=== PATIENT | male | born 1950 | race Caucasian/White ===

== ENCOUNTER 2016-10-12 22:39 | Inpatient (IN) | payer OTHER, MEDICARE ==
[2016-10-12] MEDS ORDERED: SODIUM CHLORIDE 0.9% 1,000 ML IV STA (23:03)
[2016-10-12] MEDS ORDERED: ONDANSETRON 4 MG/2 ML VIAL IVP STA (23:03)
[2016-10-12] MEDS ORDERED: PANTOPRAZOLE 40 MG/10 ML VIAL IVP STA (23:03)
[2016-10-12] MEDS ORDERED: SODIUM CHLORIDE 0.9% 500 ML IV STA (23:03)
[2016-10-12] MEDS ORDERED: LORazepam 1 MG TAB PO STA (23:05)
[2016-10-12 23:43] LABS: Basophils # (A) 0.1 k/uL (0-0.2); Basophils % (A) 1 %; CH 30.4; CHCM 33.3; Eosinophils # (A) 0.4 k/uL (0-0.7); Eosinophils % (A) 2 %; HDW 2.75; Luc # (Auto) 0.18; Luc % (Auto) 1; Lymphocytes # (A) 2.3 k/uL (1.0-4.8); Lymphocytes % (A) 11 %; MCH 29.1 pg (25.0-35.0); MCHC 31.8 g/dL (31.0-37.0); MCV 91.7 fL (80.0-100.0); Mean Platelet Volume 6.9; Monocytes # (A) 1.2 k/uL (0-1.0); Monocytes % (A) 6 %; Neutrophils # (A) 16.3 k/uL (1.3-7.7); Neutrophils % (A) 80 %; RBC 4.48 m/uL (4.30-5.90); RDW 14.5 % (11.5-15.5); WBC 20.4 k/uL (3.8-10.6); WBC (Perox) 20.26
[2016-10-12 23:51] LABS: INR 1.1 (<1.2); Partial Thromboplastin Time 23.4 sec (22.0-30.0); Prothrombin Time 11.1 sec (9.0-12.0)
[2016-10-12 23:52] LABS: ALT 27 U/L (21-72); AST 16 U/L (17-59); Alkaline Phosphatase 120 U/L (38-126); Amylase <30 U/L (30-110); Anion Gap 12 mmol/L; Blood Urea Nitrogen 14 mg/dL (9-20); Calcium 9.4 mg/dL (8.4-10.2); Carbon Dioxide 20 mmol/L (22-30); Chloride 105 mmol/L (98-107); Glucose 98 mg/dL (74-99); Non-African American GFR(MDRD) >60 (>60 ml/min/1.73 sqM); Sodium 137 mmol/L (137-145); Total Bilirubin 0.7 mg/dL (0.2-1.3); Total Protein 6.6 g/dL (6.3-8.2)
[2016-10-13 00:04] LABS: Creatine Kinase 38 U/L (55-170)
[2016-10-13 00:17] LABS: Creatine Kinase MB 0.8 ng/mL (0.0-2.4); Troponin I <0.012 ng/mL (0.000-0.034)
[2016-10-13] MEDS ORDERED: RX INFO: IV CONTRAST WAS GIVEN 1 EACH MISC MISCELLANE PRN (00:26)
--- NOTE | 2016-10-13 01:15 | XR ---
CXR 1 View INDICATION: abdominal pain COMPARISON: none FINDINGS: Examination is limited by technique. The cardiomediastinal silhouette is prominent. Mild deviation of trachea to the right. There is hazy opacification of the left mid to lower lung field, nonspecific and may be related to airspace disease, however differential considerations include artifact related to overlying soft tissue structures. Prominence of bilateral rocío. There maybe some atelectasis at the lung bases. No definite evidence for pleural effusions. Osseous structures are grossly unremarkable for acute findings. There are overlying leads limiting evaluation. IMPRESSION: 1. There is hazy opacification of the left mid to lower lung field which may be related to airspace disease, however differential considerations include artifact related to overlying soft tissue structures. 2. Prominence of bilateral rocío, nonspecific. Further evaluation by cross- sectional imaging is recommended as clinically warranted.
[2016-10-13] MEDS ORDERED: cefTRIAXone 2,000 MG in SODIUM CHLORIDE 0.9% 100 ML IVPB STA (01:55)
[2016-10-13] MEDS ORDERED: AZITHROMYCIN 500 MG in SODIUM CHLORIDE 0.9% 250 ML IVPB STA (01:55)
--- NOTE | 2016-10-13 02:01 | CT ---
CT abdomen and pelvis with contrast INDICATION: abdominal pain TECHNIQUE: Multiple, contiguous axial cuts of the abdomen and pelvis are obtained from the lung bases to the ischial tuberosities following the administration of IV contrast. 100 cc omnipaque 300. Radiation Dose: DLP: 1539.70 mGy-cm This CT exam was performed using one or more of the following dose reduction techniques: automated exposure control, adjustment of the mA and/or kV according to patient size, and/or use of iterative reconstruction technique. COMPARISON: FINDINGS: Examination is limited by artifact through the images related to overlying arms. Scarring/atelectasis at the lung bases. The liver and spleen appear normal in size. Probable splenule at the splenic hilum. The gallbladder and pancreas is grossly unremarkable. The adrenal gland are unremarkable. No evidence for hydronephrosis. Mild bilateral perinephric stranding, nonspecific. Subtle hyperdensity in the right lateral aspect of the inferior bladder. Small hiatal hernia. The appendix is normal caliber with subtle periappendiceal haziness of the tip. There is thickening of the sigmoid colon and rectum with irregular hazy margins of the pericolonic/perirectal fat with adjacent lymph nodes with abnormally rounded configurations. There is prominence of the colon proximal to the thickened sigmoid and a component of functional obstructive process is difficult to exclude. Nonspecific 1.3 cm short axis soft tissue nodule at the medial aspect of the caudate lobe which may represent a lymph node. Additional nonspecific scattered retroperitoneal lymph nodes. There is possible fluid in the right inguinal canal or possible volume averaging on the right testicle in the inguinal canal. Please correlate with physical exam. Prominent lymph nodes along the bilateral iliac chains. Atherosclerotic calcifications of the abdominal aorta. Prominent mural plaque/calcifications of the infrarenal abdominal aorta. There are chronic appearing deformities of the bilateral femoral heads with severe degenerative changes of the bilateral hip joints. Degenerative changes of the lumbar spine. Osseous mineralization appears decreased. IMPRESSION: 1. There is thickening of the sigmoid colon and rectum with adjacent prominent lymph nodes with abnormal configurations. Additionally there are prominent retroperitoneal lymph nodes. Constellation of findings is concerning for malignancy with other less likely differential consideration including a colitis. Please correlate with colonoscopy results if available. Gastroenterology consultation is recommended. 2. There is prominence of the colon proximal to the thickened sigmoid and a component of functional/mechanical obstructive process is difficult to exclude. 3. The appendix is normal caliber with subtle periappendiceal haziness of the tip which may be related to adjacent colonic process, however tip appendicitis cannot be exclude. Please correlate with clinical findings. 4. Small hiatal hernia. 5. Chronic appearing deformities of the bilateral femoral heads with severe degenerative changes of the bilateral hip joints. 6. Subtle hyperdensity in the right lateral aspect of the inferior bladder, nonspecific and may be stones or contrast material. Continued attention on followup is recommended. Bladder ultrasound may be helpful for further evaluation. [employer] 10/13/16 02:07 Verify Receipt Verified receipt with [facility]AROLINA Sun, given to Dr. Boudreaux on 10/13 02:06 (-04:00)
--- NOTE | 2016-10-13 02:05 | ED ---
Abdominal Pain HPI - General Chief Complaint: Abdominal Pain Stated Complaint: vomiting Time Seen by Provider: 10/12/16 22:55 Source: patient, EMS Mode of arrival: EMS Limitations: no limitations - History of Present Illness Initial Comments: 66 years old male presents with coffee-ground emesis and nausea for the last 2 days he denies any abdominal pain lost T12 that was towards ago. He denies any headaches no chest pain no shortness of breath no abdominal pain and he has been having a dark 40 stools as well but he attributes that to RN pill he takes. He denies any sinus symptoms of TIA or CVA no frequency urgency dysuria no fever no chills - Related Data Home Medications Medication Instructions Recorded Confirmed ARIPiprazole [Abilify] 5 mg PO BID@0800,1700 10/12/16 10/12/16 Aspirin EC [Ecotrin Low Dose] 81 mg PO HS@199910/12/16 10/12/16 Cholecalciferol [Vitamin D3] 1,000 unit PO HS@199910/12/16 10/12/16 Dicyclomine [Bentyl] 10 mg PO QID@,,,10/12/16 10/12/16 Divalproex Sodium [Depakote ER] 250 mg PO BID@0800,199910/12/16 10/12/16 Donepezil [Aricept] 5 mg PO HS@199910/12/16 10/12/16 FLUoxetine HCL [PROzac] 20 mg PO HS@199910/12/16 10/12/16 Ferrous Sulfate [Feosol] 325 mg PO TID@0800,1399,199910/12/16 10/12/16 Lactobacillus Acidophilus 1 tab PO BID@0800,1700 10/12/16 10/12/16 [Acidophilus] Zolpidem [Ambien] 5 mg PO HS@199910/12/16 10/12/16 buPROPion HCL [Wellbutrin SR] 100 mg PO BID@0800,1400 10/12/16 10/12/16 sulfaSALAzine [Azulfidine] 500 mg PO QID@,,17,20 10/12/16 10/12/16 Allergies Allergy/AdvReac Type Severity Reaction Status Date / Time No Known Allergies Allergy Unverified 10/12/16 22:59 Review of Systems ROS Statement: Those systems with pertinent positive or pertinent negative responses have been documented in the HPI. ROS Other: All systems not noted in ROS Statement are negative. Past Medical History Additional Past Medical History / Comment(s): cellulitis History of Any Multi-Drug Resistant Organisms: None Reported Past Surgical History: Adenoidectomy, Tonsillectomy Past Psychological History: Anxiety, Depression Smoking Status: Former smoker Past Alcohol Use History: None Reported Past Drug Use History: Marijuana General Exam - General Exam Comments Initial Comments: General: The patient is awake and alert, quite anxious Skin: Skin is warm and dry and no rashes or lesions are noted. Both lower extremity has some iron deposits, and consistent with a venous stasis and chronic changes in the leg Eye: Pupils are equal, round and reactive to light, extra-ocular movements are intact; there is normal conjunctiva bilaterally. Ears, nose, mouth and throat: There are moist mucous membranes and no oral lesions. Neck: The neck is supple, there is no tenderness Cardiovascular: There is a regular rate and rhythm. No murmur, rub or gallop is appreciated. Respiratory: To auscultation bilateral, which breath sounds bilateral Gastrointestinal: Soft, non-distended, non-tender abdomen without masses or organomegaly noted. There is no rebound or guarding present. Bowel sounds are unremarkable. Back: There is no tenderness to palpation in the midline. There is no obvious deformity. Musculoskeletal: Normal ROM, no tenderness, There is no pedal edema. There is no calf tenderness or swelling. No cords were appreciated. Neurological: CN II-XII intact, Cranial nerves III through XII are intact. There are no obvious motor or sensory deficits. Coordination appears grossly intact. Speech is normal. Psychiatric: Cooperative, seems anxious and depressed. Limitations: no limitations Course Vital Signs 10/12/16 10/12/16 10/12/16 22:42 22:51 23:13 Temperature 98.5 F Pulse Rate 93 92 Respiratory 24 34 H 18 Rate Blood Pressure 154/71 156/115 O2 Sat by Pulse 96 96 Oximetry 10/12/16 10/13/16 10/13/16 23:43 00:58 01:49 Temperature 98.4 F Pulse Rate 86 94 98 Respiratory 20 20 20 Rate Blood Pressure 167/106 138/62 134/62 O2 Sat by Pulse 96 97 96 Oximetry Medical Decision Making - Lab Data Result diagrams: 10/12/16 23:30 10/12/16 23:30 Lab Results 10/12/16 10/12/16 10/12/16 Range/Units 23:30 23:30 23:30 WBC 20.4 H (3.8-10.6) k/uL RBC 4.48 (4.30-5.90) m/uL Hgb 13.0 (13.0-17.5) gm/dL Hct 41.0 (39.0-53.0) % MCV 91.7 (80.0-100.0) fL MCH 29.1 (25.0-35.0) pg MCHC 31.8 (31.0-37.0) g/dL RDW 14.5 (11.5-15.5) % Plt Count 395 (150-450) k/uL Neutrophils % 80 % Lymphocytes % 11 % Monocytes % 6 % Eosinophils % 2 % Basophils % 1 % Neutrophils # 16.3 H (1.3-7.7) k/uL Lymphocytes # 2.3 (1.0-4.8) k/uL Monocytes # 1.2 H (0-1.0) k/uL Eosinophils # 0.4 (0-0.7) k/uL Basophils # 0.1 (0-0.2) k/uL PT (9.0-12.0) sec INR (<1.2) APTT (22.0-30.0) sec Sodium 137 (137-145) mmol/L Potassium 4.0 (3.5-5.1) mmol/L Chloride 105 (98-107) mmol/L Carbon Dioxide 20 L (22-30) mmol/L Anion Gap 12 mmol/L BUN 14 (9-20) mg/dL Creatinine 0.70 (0.66-1.25) mg/dL Est GFR (MDRD) Af Amer >60 (>60 ml/min/1.73 sqM) Est GFR (MDRD) Non-Af >60 (>60 ml/min/1.73 sqM) Glucose 98 (74-99) mg/dL Plasma Lactic Acid Abdirahman (0.7-2.0) mmol/L Calcium 9.4 (8.4-10.2) mg/dL Total Bilirubin 0.7 (0.2-1.3) mg/dL AST 16 L (17-59) U/L ALT 27 (21-72) U/L Alkaline Phosphatase 120 (38-126) U/L Total Creatine Kinase 38 L (55-170) U/L CK-MB (CK-2) 0.8 (0.0-2.4) ng/mL CK-MB (CK-2) Rel Index 2.1 Troponin I <0.012 (0.000-0.034) ng/mL Total Protein 6.6 (6.3-8.2) g/dL Albumin 3.4 L (3.5-5.0) g/dL Amylase <30 L (30-110) U/L Lipase 59 (23-300) U/L Blood Type Blood Type Confirm Blood Type Recheck Antibody Screen Spec Expiration Date 10/12/16 10/12/16 10/12/16 Range/Units 23:30 23:30 23:30 WBC (3.8-10.6) k/uL RBC (4.30-5.90) m/uL Hgb (13.0-17.5) gm/dL Hct (39.0-53.0) % MCV (80.0-100.0) fL MCH (25.0-35.0) pg MCHC (31.0-37.0) g/dL RDW (11.5-15.5) % Plt Count (150-450) k/uL Neutrophils % % Lymphocytes % % Monocytes % % Eosinophils % % Basophils % % Neutrophils # (1.3-7.7) k/uL Lymphocytes # (1.0-4.8) k/uL Monocytes # (0-1.0) k/uL Eosinophils # (0-0.7) k/uL Basophils # (0-0.2) k/uL PT 11.1 (9.0-12.0) sec INR 1.1 (<1.2) APTT 23.4 (22.0-30.0) sec Sodium (137-145) mmol/L Potassium (3.5-5.1) mmol/L Chloride (98-107) mmol/L Carbon Dioxide (22-30) mmol/L Anion Gap mmol/L BUN (9-20) mg/dL Creatinine (0.66-1.25) mg/dL Est GFR (MDRD) Af Amer (>60 ml/min/1.73 sqM) Est GFR (MDRD) Non-Af (>60 ml/min/1.73 sqM) Glucose (74-99) mg/dL Plasma Lactic Acid Abdirahman 1.4 (0.7-2.0) mmol/L Calcium (8.4-10.2) mg/dL Total Bilirubin (0.2-1.3) mg/dL AST (17-59) U/L ALT (21-72) U/L Alkaline Phosphatase (38-126) U/L Total Creatine Kinase (55-170) U/L CK-MB (CK-2) (0.0-2.4) ng/mL CK-MB (CK-2) Rel Index Troponin I (0.000-0.034) ng/mL Total Protein (6.3-8.2) g/dL Albumin (3.5-5.0) g/dL Amylase (30-110) U/L Lipase (23-300) U/L Blood Type B Positive Blood Type Confirm Blood Type Recheck CABO Indicated Antibody Screen NEGATIVE Spec Expiration Date 10/15/2016 - 232910/13/16 Range/Units 00:57 WBC (3.8-10.6) k/uL RBC (4.30-5.90) m/uL Hgb (13.0-17.5) gm/dL Hct (39.0-53.0) % MCV (80.0-100.0) fL MCH (25.0-35.0) pg MCHC (31.0-37.0) g/dL RDW (11.5-15.5) % Plt Count (150-450) k/uL Neutrophils % % Lymphocytes % % Monocytes % % Eosinophils % % Basophils % % Neutrophils # (1.3-7.7) k/uL Lymphocytes # (1.0-4.8) k/uL Monocytes # (0-1.0) k/uL Eosinophils # (0-0.7) k/uL Basophils # (0-0.2) k/uL PT (9.0-12.0) sec INR (<1.2) APTT (22.0-30.0) sec Sodium (137-145) mmol/L Potassium (3.5-5.1) mmol/L Chloride (98-107) mmol/L Carbon Dioxide (22-30) mmol/L Anion Gap mmol/L BUN (9-20) mg/dL Creatinine (0.66-1.25) mg/dL Est GFR (MDRD) Af Amer (>60 ml/min/1.73 sqM) Est GFR (MDRD) Non-Af (>60 ml/min/1.73 sqM) Glucose (74-99) mg/dL Plasma Lactic Acid Abdirahman (0.7-2.0) mmol/L Calcium (8.4-10.2) mg/dL Total Bilirubin (0.2-1.3) mg/dL AST (17-59) U/L ALT (21-72) U/L Alkaline Phosphatase (38-126) U/L Total Creatine Kinase (55-170) U/L CK-MB (CK-2) (0.0-2.4) ng/mL CK-MB (CK-2) Rel Index Troponin I (0.000-0.034) ng/mL Total Protein (6.3-8.2) g/dL Albumin (3.5-5.0) g/dL Amylase (30-110) U/L Lipase (23-300) U/L Blood Type Blood Type Confirm B Positive Blood Type Recheck Antibody Screen Spec Expiration Date Disposition Clinical Impression: Coffee ground emesis, GI bleed, Pneumonia Disposition: ADMITTED IP TO THIS [facility] Condition: Good Referrals: Nonstaff,Physician [Primary Care Provider] - 1-2 days
[2016-10-13] MEDS ORDERED: SODIUM CHLORIDE 0.9% 1,000 ML IV ONE (02:06)
[2016-10-13] MEDS ORDERED: metroNIDAZOLE-NS PMX 500 MG in SALINE 1 100ML.BAG IVPB STA (02:13)
[2016-10-13 03:04] VITALS: BMI 27.2
[2016-10-13 03:11] LABS: Amorphous Sediment,Urine Few /hpf; Appearance,Urine Cloudy (Clear); Bacteria,Urine Rare /hpf; Bilirubin,Urine 1+ (Negative); Glucose,Urine (UA) Negative (Negative); Ketones,Urine 2+ (Negative); Leukocyte Esterase,Urine Negative (Negative); Mucus,Urine Occasional /hpf; Nitrite,Urine Negative (Negative); PH, Urine 7.5 (5.0-8.0); Particle Count 9031; Protein,Urine 1+ (Negative); RBC,Urine 2 /hpf (0-5); Squamous Epithelial Cell,Urine 1 /hpf (0-4); UA Billing (MACRO vs. MICRO) MICRO; Urobilinogen,Urine <2.0 mg/dL (<2.0); WBC,Urine 10 /hpf (0-5)
[2016-10-13 03:22] LABS: Specific Gravity,Urine >1.050 (1.001-1.035)
--- NOTE | 2016-10-13 04:37 | P.HPIM ---
History of Present Illness H&P Date: 10/13/16 Chief Complaint: Intractable nausea and vomiting This is 66-year-old male who has history of debilitating rheumatoid arthritis and unknown mental health condition who came to emergency department with complaint of severe nausea and vomiting going on for the last 34 days. Prior to start of his symptoms patient was in his usual state of health. 3-4 days ago he started experiencing nausea and he vomited multiple times no bloody known bile was 4. He was unable to keep anything by mouth. He tried to drink some cold and to up immediately after that. He did not experience any abdominal pain. He has suffered with some heartburns but no difficulties in swallowing or painful swallowing of the foot. Denies any changes in all movement habits. Last bowel movement morning patient describes it as being black. Also note he is on iron pills. Patient denies any weight loss or changes in the appetite the last few months. Patient didn't try anything for his nausea and did not find any alleviating factors. Since his symptoms were getting progressively worse stool was black and decided to come to emergency Department. In the MRSA Department his initial blood work revealed white blood cell count of 20 normal hemoglobin and platelet count. He had CT of the abdomen and pelvis that showed some thickening in the sigmoid colon and rectum with associated lymphadenopathy suspicious for malignancy and also some haziness around his appendix that cannot rule out appendicitis. Chest x-ray shows some haziness in the left lower lobe. Patient denies any shortness of breath or coughing. Currently during interview he states that he is nausea is significantly better. Ration lives with his currently. He is nonambulatory due to debilitating arthritis in his opinion and he is not able to walk. He cannot tell me if he has any doctor that he is following with. He cannot risk his medications he needs his is here. He is to reside in the in the nursing facility. He he had colonoscopy in 2001 seems for screening purposes and that time a small polyp was removed per patient. I do not have any documentation or any family members are available. Patient was admitted for further evaluation of his colonic thickening as well as nausea and vomiting. Review of Systems Constitutional: Denies anorexia, Denies fatigue, Denies fever, Denies lethargy, Denies malaise, Denies night sweats, Denies poor appetite Ears, nose, mouth and throat: Denies dysphagia, Denies headache, Denies odynophagia Cardiovascular: Denies chest pain, Denies dyspnea on exertion, Denies edema, Denies high blood pressure, Denies orthopnea, Denies shortness of breath Respiratory: Denies congestion, Denies cough, Denies cough with sputum, Denies dyspnea, Denies hemoptysis, Denies home oxygen Gastrointestinal: Reports as per HPI Genitourinary: Denies hematuria, Denies polyuria Musculoskeletal: Reports gait dysfunction, Reports limitation of motion, Reports low back pain, Reports morning stiffness, Reports muscle cramps, Reports myalgias Integumentary: Reports darkening of skin, Denies sores, Denies wounds Neurological: Reports balance difficulties Endocrine: Denies cold intolerance, Denies heat intolerance, Denies polydipsia, Denies polyuria Hematologic/Lymphatic: Denies easy bruising Past Medical History Past Medical History: Osteoarthritis (OA), Rheumatoid Arthritis (RA) Additional Past Medical History / Comment(s): cellulitis History of Any Multi-Drug Resistant Organisms: None Reported Past Surgical History: Adenoidectomy, Tonsillectomy Past Anesthesia/Blood Transfusion Reactions: No Reported Reaction Past Psychological History: Anxiety, Depression Smoking Status: Former smoker Past Alcohol Use History: None Reported Past Drug Use History: Marijuana - Past Family History Father Family Medical History: Cancer Medications and Allergies Home Medications Medication Instructions Recorded Confirmed Type ARIPiprazole [Abilify] 5 mg PO BID@0800,1700 10/12/16 10/12/16 History Aspirin EC [Ecotrin Low Dose] 81 mg PO HS@199910/12/16 10/12/16 History Cholecalciferol [Vitamin D3] 1,000 unit PO HS@199910/12/16 10/12/16 History Dicyclomine [Bentyl] 10 mg PO QID@08,,,10/12/16 10/12/16 History Divalproex Sodium [Depakote ER] 250 mg PO BID@0800,199910/12/16 10/12/16 History Donepezil [Aricept] 5 mg PO HS@199910/12/16 10/12/16 History FLUoxetine HCL [PROzac] 20 mg PO HS@199910/12/16 10/12/16 History Ferrous Sulfate [Feosol] 325 mg PO TID@0800,1400,199910/12/16 10/12/16 History Lactobacillus Acidophilus 1 tab PO BID@0800,1700 10/12/16 10/12/16 History [Acidophilus] Zolpidem [Ambien] 5 mg PO HS@2000 10/12/16 10/12/16 History buPROPion HCL [Wellbutrin SR] 100 mg PO BID@0800,1400 10/12/16 10/12/16 History sulfaSALAzine [Azulfidine] 500 mg PO QID@08,,,20 10/12/16 10/12/16 History Allergies Allergy/AdvReac Type Severity Reaction Status Date / Time No Known Allergies Allergy Unverified 10/12/16 22:59 Physical Exam Vitals: Vital Signs Temp Pulse Pulse Resp BP BP Pulse Ox 10/13/16 03:07 98.1 F 87 18 121/58 96 10/13/16 02:26 98.2 F 90 20 133/58 97 10/13/16 01:49 98.4 F 98 20 134/62 96 10/13/16 00:58 94 20 138/62 97 10/12/16 23:43 86 20 167/106 96 10/12/16 23:13 92 18 156/115 96 10/12/16 22:51 34 H 10/12/16 22:42 98.5 F 93 24 154/71 96 Intake and Output 10/12/16 10/12/16 10/13/16 14:59 22:59 06:59 Other: Weight 74.843 kg 79 kg Patient Weight 10/13/16 06:59 Weight 79 kg - Constitutional General appearance: cooperative, disheveled, no acute distress - EENT Eyes: anicteric sclerae, EOMI, PERRLA ENT: normal oropharynx, no pharyngeal erythema - Respiratory Respiratory: bilateral: CTA, diminished, rales, negative: rhonchi, wheezing - Cardiovascular Rhythm: regular Heart sounds: normal: S1, S2 - Gastrointestinal General gastrointestinal: decreased bowel sounds, no distended, no organomegaly , no rigid, soft, no tenderness - Integumentary Integumentary: rash - Neurologic Neurologic: CNII-XII intact - Musculoskeletal Musculoskeletal: generalized weakness - Psychiatric Psychiatric: A&O x's 3 Results CBC & Chem 7: 10/12/16 23:30 10/12/16 23:30 Labs: Abnormal Lab Results - Last 24 Hours (Table) 10/12/16 10/12/16 10/12/16 Range/Units 23:30 23:30 23:30 WBC 20.4 H (3.8-10.6) k/uL Neutrophils # 16.3 H (1.3-7.7) k/uL Monocytes # 1.2 H (0-1.0) k/uL Carbon Dioxide 20 L (22-30) mmol/L AST 16 L (17-59) U/L Total Creatine Kinase 38 L (55-170) U/L Albumin 3.4 L (3.5-5.0) g/dL Amylase <30 L (30-110) U/L Ur Specific Clayton (1.001-1.035) Urine Protein (Negative) Urine Ketones (Negative) Urine Bilirubin (Negative) Urine WBC (0-5) /hpf Amorphous Sediment (None) /hpf Urine Bacteria (None) /hpf Urine Mucus (None) /hpf Urine Yeast (Budding) (None) /hpf 10/13/16 Range/Units 02:06 WBC (3.8-10.6) k/uL Neutrophils # (1.3-7.7) k/uL Monocytes # (0-1.0) k/uL Carbon Dioxide (22-30) mmol/L AST (17-59) U/L Total Creatine Kinase (55-170) U/L Albumin (3.5-5.0) g/dL Amylase (30-110) U/L Ur Specific Clayton >1.050 H (1.001-1.035) Urine Protein 1+ H (Negative) Urine Ketones 2+ H (Negative) Urine Bilirubin 1+ H (Negative) Urine WBC 10 H (0-5) /hpf Amorphous Sediment Few H (None) /hpf Urine Bacteria Rare H (None) /hpf Urine Mucus Occasional H (None) /hpf Urine Yeast (Budding) Occasional H (None) /hpf Chest x-ray: report reviewed CT scan - abdomen: report reviewed Thrombosis Risk Factor Assmnt - DVT/VTE Prophylaxis DVT/VTE Prophylaxis: Pharmacologic Prophylaxis ordered - Choose All That Apply Any of the Below Risk Factors Present?: No Other Risk Factors: Yes Each Risk Factor Represents 2 Points: Age 61-74 years Thrombosis Risk Factor Assessment Total Risk Factor Score: 2 Thrombosis Risk Factor Assessment Level: Low Risk Assessment and Plan (1) Intractable nausea and vomiting Narrative/Plan: Nothing per mouth GI consult Antiemetics PPI Status: Acute (2) Mural thickening of sigmoid colon Narrative/Plan: Associated lymphadenopathy Could represent malignancy versus colitis infectious//ischemic GI consulted Monitor hemoglobin Continue antibiotics in view of significant leukocytosis and CT findings Status: Acute (3) Rheumatoid arthritis Narrative/Plan: Unclear history He is on sulfasalazine per list of home medication We'll need to contact the family to inquire more patient prior medical history Status: Acute (4) Debility Narrative/Plan: More history need to be obtained from family Status: Acute (5) Stasis dermatitis Narrative/Plan: Local care Status: Acute Time with Patient: Greater than 30
[2016-10-13] MEDS ORDERED: NALOXONE 0.4 MG/ML 1 ML VIAL IV PRN (04:39)
[2016-10-13] MEDS ORDERED: ONDANSETRON 4 MG/2 ML VIAL IVP PRN (04:39)
[2016-10-13] MEDS ORDERED: ACETAMINOPHEN TAB 325 MG TAB PO PRN (04:39)
[2016-10-13] MEDS ORDERED: LACTATED RINGERS 1,000 ML IV SCH (04:45)
[2016-10-13] MEDS: DEXTROSE 5%-0.45% NACL 1,000 ML IV SCH ×2 (05:23→18:04)
--- NOTE | 2016-10-13 07:18 | XR ---
EXAMINATION TYPE: XR KUB DATE OF EXAM: 10/13/2016 COMPARISON: NONE HISTORY: Abdominal pain and vomiting TECHNIQUE: Supine abdominal radiograph was obtained. FINDINGS: There is prominence of the redundant sigmoid colon measuring up to 5 cm with lack of haustr al markings distally. Multiple air-filled nondilated small bowel loops are clustered within the mid a bdomen. Moderate amount stool is seen throughout the colon. Destructive changes of the femoral acetabular joints. IMPRESSION: Findings suspicious for evolving early partial obstruction versus colonic ileus.
[2016-10-13] MEDS ORDERED: DICYCLOMINE 10 MG CAP PO SCH (08:00)
[2016-10-13] MEDS ORDERED: FERROUS SULFATE 325 MG TAB PO SCH (08:00)
[2016-10-13] MEDS ORDERED: sulfaSALAzine 500 MG TAB PO SCH (08:00)
[2016-10-13] MEDS ORDERED: LACTOBACILLUS ACIDOPH & BULGAR 1 EACH PACKET PO SCH (08:00)
[2016-10-13] MEDS: ARIPiprazole 5 MG TAB PO SCH ×2 (10:38→16:01)
[2016-10-13] MEDS: buPROPion SR 100 MG TABLET.ER PO SCH ×2 (10:38→13:09)
[2016-10-13] MEDS: PANTOPRAZOLE 40 MG/10 ML VIAL IV SCH (10:38)
[2016-10-13] MEDS: DIVALPROEX ER 250 MG TAB.ER.24H PO SCH ×2 (10:39→21:35)
[2016-10-13] MEDS: THIAMINE 100 MG TAB PO SCH (10:39)
--- NOTE | 2016-10-13 10:39 | P.CONS ---
History of Present Illness - Reason for Consult Consult date: 10/13/16 Abdominal pain Requesting physician: Cristiano Marin - History of Present Illness 66-year-old gentleman, , with a history of severe rheumatoid arthritis medical debility bedbound presents with nausea vomiting nonbloody emesis and abdominal pain 5 days. Patient denies hematemesis hematochezia melena however medical records review there was reports of coffee-ground emesis possible melena upon evaluation in the ER. Intermittent diarrhea no constipation. Pain mostly in the mid to lower abdomen. Nursing reports no episodes of hematemesis hematochezia melena. No NSAIDs or aspirin. No alcohol. White count 20.4. Hemoglobin 13. INR 1.1. Platelets 395. BUN 14. Creatinine 0.7. Hemoccult stool positive. CT abdomen and pelvis reported thickening of the sigmoid colon and rectum with adjacent prominent lymph nodes with abnormal configurations. Prominent retroperitoneal lymph nodes. Concerned for malignancy possible colitis. Appendix normal caliber with subtle periappendiceal haziness the tip may be related to adjacent colonic process however appendicitis cannot be excluded. Last colonoscopy to patient's memory was in 2001 small polyp removed. Review of Systems Constitutional: Denies fever, chills, sweats, weight gain, or loss. HEENT: Negative for migraines, blurred vision or loss, earaches, drainage, tinnitus, oral mucosal lesions, dysphagia, or odynophagia. Cardiac: Negative for chest pain, arrhythmias, or palpitation. Respiratory: Negative for shortness of breath, hemoptysis, cough, or sputum production. Gastrointestinal: See HPI for pertinent findings. Genitourinary: Negative for hematuria, urgency, frequency, polyuria, dysuria, or penile discharge. Musculoskeletal: Rheumatoid arthritis. Neurologic: Negative for stroke or TIA. Endocrine: Negative for thyroid problems. Skin: Negative for rash or itching. Psychiatric: History of depression and anxiety Past Medical History Past Medical History: Osteoarthritis (OA), Rheumatoid Arthritis (RA) Additional Past Medical History / Comment(s): cellulitis History of Any Multi-Drug Resistant Organisms: None Reported Past Surgical History: Adenoidectomy, Tonsillectomy Past Anesthesia/Blood Transfusion Reactions: No Reported Reaction Past Psychological History: Anxiety, Depression Smoking Status: Former smoker Past Alcohol Use History: None Reported Past Drug Use History: Marijuana - Past Family History Father Family Medical History: Cancer Medications and Allergies Home Medications Medication Instructions Recorded Confirmed Type ARIPiprazole [Abilify] 5 mg PO BID@0800,1700 10/12/16 10/12/16 History Aspirin EC [Ecotrin Low Dose] 81 mg PO HS@199910/12/16 10/12/16 History Cholecalciferol [Vitamin D3] 1,000 unit PO HS@199910/12/16 10/12/16 History Dicyclomine [Bentyl] 10 mg PO QID@,,,10/12/16 10/12/16 History Divalproex Sodium [Depakote ER] 250 mg PO BID@0800,199910/12/16 10/12/16 History Donepezil [Aricept] 5 mg PO HS@199910/12/16 10/12/16 History FLUoxetine HCL [PROzac] 20 mg PO HS@199910/12/16 10/12/16 History Ferrous Sulfate [Feosol] 325 mg PO TID@0800,1400,199910/12/16 10/12/16 History Lactobacillus Acidophilus 1 tab PO BID@0800,1700 10/12/16 10/12/16 History [Acidophilus] Zolpidem [Ambien] 5 mg PO HS@199910/12/16 10/12/16 History buPROPion HCL [Wellbutrin SR] 100 mg PO BID@0800,1400 10/12/16 10/12/16 History sulfaSALAzine [Azulfidine] 500 mg PO QID@,,,10/12/16 10/12/16 History Allergies Allergy/AdvReac Type Severity Reaction Status Date / Time No Known Allergies Allergy Unverified 10/12/16 22:59 Physical Exam Vitals: Vital Signs Temp Pulse Pulse Resp BP BP Pulse Ox 10/13/16 07:00 98.5 F 86 18 106/54 96 10/13/16 04:39 96 10/13/16 03:07 98.1 F 87 18 121/58 96 10/13/16 02:26 98.2 F 90 20 133/58 97 10/13/16 01:49 98.4 F 98 20 134/62 96 10/13/16 00:58 94 20 138/62 97 10/12/16 23:43 86 20 167/106 96 10/12/16 23:13 92 18 156/115 96 10/12/16 22:51 34 H 10/12/16 22:42 98.5 F 93 24 154/71 96 Intake and Output 10/12/16 10/13/16 10/13/16 22:59 06:59 14:59 Other: # Voids 1 Weight 74.843 kg 79 kg General appearance: The patient is alert, oriented, in no acute distress. HET: Head is normocephalic and atraumatic. Pupils are equal and reactive. Oropharynx is clear without lesions. Neck: Supple without lymphadenopathy. Trachea midline. Heart: S1 S2. Regular rate and rhythm. Lungs: No crackles or wheezes are heard. Abdomen: Soft, mild midepigastric/midabdominal tenderness, nondistended with bowel sounds. No peritoneal signs. No palpable organomegaly or masses. Extremities: Normal skin color and turgor. No cyanosis, rash, ulceration, clubbing, or edema. Radial and pedal pulses are 2/4 bilaterally. Neurological: No focal deficits. Strength and sensation are grossly intact. Results CBC & Chem 7: 10/12/16 23:30 10/12/16 23:30 Labs: Abnormal Lab Results - Last 24 Hours (Table) 10/12/16 10/12/16 10/12/16 Range/Units 23:30 23:30 23:30 WBC 20.4 H (3.8-10.6) k/uL Neutrophils # 16.3 H (1.3-7.7) k/uL Monocytes # 1.2 H (0-1.0) k/uL ESR (0-15) mm/hr Carbon Dioxide 20 L (22-30) mmol/L AST 16 L (17-59) U/L Total Creatine Kinase 38 L (55-170) U/L Albumin 3.4 L (3.5-5.0) g/dL Amylase <30 L (30-110) U/L Ur Specific [place] (1.001-1.035) Urine Protein (Negative) Urine Ketones (Negative) Urine Bilirubin (Negative) Urine WBC (0-5) /hpf Amorphous Sediment (None) /hpf Urine Bacteria (None) /hpf Urine Mucus (None) /hpf Urine Yeast (Budding) (None) /hpf 10/13/16 10/13/16 Range/Units 02:06 07:53 WBC (3.8-10.6) k/uL Neutrophils # (1.3-7.7) k/uL Monocytes # (0-1.0) k/uL ESR 55 H (0-15) mm/hr Carbon Dioxide (22-30) mmol/L AST (17-59) U/L Total Creatine Kinase (55-170) U/L Albumin (3.5-5.0) g/dL Amylase (30-110) U/L Ur Specific [place] >1.050 H (1.001-1.035) Urine Protein 1+ H (Negative) Urine Ketones 2+ H (Negative) Urine Bilirubin 1+ H (Negative) Urine WBC 10 H (0-5) /hpf Amorphous Sediment Few H (None) /hpf Urine Bacteria Rare H (None) /hpf Urine Mucus Occasional H (None) /hpf Urine Yeast (Budding) Occasional H (None) /hpf CT scan - abdomen: report reviewed (Dr. Mejia) Assessment and Plan (1) Abdominal pain Narrative/Plan: 66-year-old gentleman with severe rheumatoid arthritis medical debility bedbound presents with acute abdominal pain and leukocytosis nausea vomiting [address] imaging suggestive of colonic rectal thickening with adjacent retroperitoneal lymph node enlargement concern for malignancy possible colitis. Underlying of acute appendicitis cannot be entirely excluded. Status: Acute Plan: 1. EGD colonoscopy discussed and recommended however patient is a and is requesting transfer to the [place] hospital for further evaluation treatment and procedures. This was discussed with case management and they are assessing the situation. Presently patient is not providing consent for procedures until he discusses [facility] with case management. 2. Clear liquid diet. Will follow closely with you. Thank you for this kind referral and the opportunity to participate in the care of your patient. This consultation was discussed with Dr. Mejia. The impression and plan of care have been directed as dictated.
--- NOTE | 2016-10-13 15:14 | P.PN ---
Subjective Principal diagnosis: Nausea, vomiting, hematochezia 66 years old male came with abdominal pain for 5 days associated with nausea, nonbloody emesis and hematochezia. Workup in the emergency department and showed severe leukocytosis and CT of the abdomen revealed thickening of the sigmoid colon and rectum with lymphadenopathy. IV antibiotics initiated. GI has been consulted. This morning patient had some improvement in his symptoms, slight nausea, no vomiting, abdominal pain is controlled. Tolerated clear liquid diet. Patient was seen by gastroenterology service, she refused colonoscopy. clinical nutrition manager is involved to help with transfer to [facility]. Objective - Vital Signs Vital signs: Vital Signs Temp 98.7 F 10/13/16 14:37 Pulse 77 10/13/16 14:37 Resp 16 10/13/16 14:37 BP 126/62 10/13/16 14:37 Pulse Ox 96 10/13/16 14:37 Intake & Output 10/12/16 10/13/16 10/13/16 18:59 06:59 18:59 Weight 79 kg 79 kg Other: Voiding Method Urinal Incontinent # Voids 1 1 - Exam Constitutional: No acute distress, conversant, pleasant Eyes: Anicteric sclerae, moist conjunctiva, no lid-lag ENMT: NC/AT Neck: Supple, FROM, no masses, or JVD No thyromegaly Lungs: Clear to auscultation Clear to percussion Normal respiratory effort, no accessory muscle use Cardiovascular: Heart regular in rate and rhythm, No murmurs, gallops, or rubs No peripheral edema Abdominal: Soft Nontender, no guarding, rebound or rigidity Normoactive bowel sounds No hepatomegaly, No splenomegaly No palpable mass Skin: Normal temperature, tone, texture, turgor No subcutaneous nodules No rash, lesions No ulcers Extremities: No digital cyanosis No clubbing Pedal pulses intact and symmetrical Psychiatric: Alert and oriented to person, place and time Appropriate affect Intact judgement - Labs CBC & Chem 7: 10/12/16 23:30 10/12/16 23:30 Labs: Abnormal Lab Results - Last 24 Hours (Table) 10/12/16 10/12/16 10/12/16 Range/Units 23:30 23:30 23:30 WBC 20.4 H (3.8-10.6) k/uL Neutrophils # 16.3 H (1.3-7.7) k/uL Monocytes # 1.2 H (0-1.0) k/uL ESR (0-15) mm/hr Carbon Dioxide 20 L (22-30) mmol/L AST 16 L (17-59) U/L Total Creatine Kinase 38 L (55-170) U/L Albumin 3.4 L (3.5-5.0) g/dL Amylase <30 L (30-110) U/L Ur Specific [place] (1.001-1.035) Urine Protein (Negative) Urine Ketones (Negative) Urine Bilirubin (Negative) Urine WBC (0-5) /hpf Amorphous Sediment (None) /hpf Urine Bacteria (None) /hpf Urine Mucus (None) /hpf Urine Yeast (Budding) (None) /hpf 10/13/16 10/13/16 Range/Units 02:06 07:53 WBC (3.8-10.6) k/uL Neutrophils # (1.3-7.7) k/uL Monocytes # (0-1.0) k/uL ESR 55 H (0-15) mm/hr Carbon Dioxide (22-30) mmol/L AST (17-59) U/L Total Creatine Kinase (55-170) U/L Albumin (3.5-5.0) g/dL Amylase (30-110) U/L Ur Specific [place] >1.050 H (1.001-1.035) Urine Protein 1+ H (Negative) Urine Ketones 2+ H (Negative) Urine Bilirubin 1+ H (Negative) Urine WBC 10 H (0-5) /hpf Amorphous Sediment Few H (None) /hpf Urine Bacteria Rare H (None) /hpf Urine Mucus Occasional H (None) /hpf Urine Yeast (Budding) Occasional H (None) /hpf Microbiology - Last 24 Hours (Table) 10/13/16 02:06 Urine Culture - Preliminary Urine,Voided
[2016-10-13] MEDS: metroNIDAZOLE-NS PMX 500 MG in SALINE 1 100ML.BAG IVPB SCH (16:01)
[2016-10-13] MEDS ORDERED: ASPIRIN 81 MG CHEW PO SCH (20:00)
[2016-10-13] MEDS: ZOLPIDEM 5 MG TAB PO SCH (21:35)
[2016-10-13] MEDS: DONEPEZIL 5 MG TAB PO SCH (21:35)
[2016-10-13] MEDS: FLUoxetine HCL 20 MG CAP PO SCH (21:36)
[2016-10-13] MEDS: CHOLECALCIFEROL 1,000 UNIT TAB PO SCH (21:37)
[2016-10-14] MEDS: metroNIDAZOLE-NS PMX 500 MG in SALINE 1 100ML.BAG IVPB SCH ×4 (01:02→23:48)
[2016-10-14 08:24] LABS: Basophils # (A) 0.1 k/uL (0-0.2); Basophils % (A) 1 %; CH 29.8; CHCM 32.6; Eosinophils # (A) 0.7 k/uL (0-0.7); Eosinophils % (A) 8 %; HCT 34.2 % (39.0-53.0); HDW 2.85; HGB 10.9 gm/dL (13.0-17.5); Luc # (Auto) 0.17; Luc % (Auto) 2; Lymphocytes # (A) 1.5 k/uL (1.0-4.8); Lymphocytes % (A) 18 %; MCH 29.3 pg (25.0-35.0); MCHC 31.9 g/dL (31.0-37.0); MCV 91.8 fL (80.0-100.0); Monocytes # (A) 0.6 k/uL (0-1.0); Monocytes % (A) 8 %; Neutrophils # (A) 5.5 k/uL (1.3-7.7); Neutrophils % (A) 64 %; RBC 3.72 m/uL (4.30-5.90); RDW 14.1 % (11.5-15.5); WBC 8.6 k/uL (3.8-10.6); WBC (Perox) 9.25
[2016-10-14 08:54] LABS: Anion Gap 9 mmol/L; Blood Urea Nitrogen 5 mg/dL (9-20); Calcium 8.6 mg/dL (8.4-10.2); Carbon Dioxide 21 mmol/L (22-30); Chloride 110 mmol/L (98-107); Glucose 77 mg/dL (74-99); Non-African American GFR(MDRD) >60 (>60 ml/min/1.73 sqM); Potassium 3.6 mmol/L (3.5-5.1); Sodium 140 mmol/L (137-145)
[2016-10-14] MEDS: DEXTROSE 5%-0.45% NACL 1,000 ML IV SCH ×2 (09:05→21:17)
[2016-10-14] MEDS: ARIPiprazole 5 MG TAB PO SCH ×2 (09:06→17:09)
[2016-10-14] MEDS: PANTOPRAZOLE 40 MG/10 ML VIAL IV SCH (09:07)
[2016-10-14] MEDS: DIVALPROEX ER 250 MG TAB.ER.24H PO SCH ×2 (09:07→21:17)
[2016-10-14] MEDS: buPROPion SR 100 MG TABLET.ER PO SCH ×2 (09:07→14:11)
--- NOTE | 2016-10-14 10:10 | P.PN ---
Subjective Principal diagnosis: Abdominal pain possible GI bleed 66-year-old gentleman admitted with abdominal pain possible GI bleed with episode of coffee-ground emesis possible red tinged bowel movements. However no witnessed episodes of hematemesis medication melena since admission. Hemoglobin 10.9. CT reported rectosigmoid thickening lymph node enlargement underlying malignancy cannot be excluded. Yesterday patient was requesting transfer to [place] for endoscopic evaluation however this morning he has changed his mind. Abdominal pain improved. No reports of bleeding. Objective - Vital Signs Vital signs: Vital Signs Temp 97.3 F L 10/14/16 07:00 Pulse 67 10/14/16 07:00 Resp 18 10/14/16 07:00 BP 110/62 10/14/16 07:00 Pulse Ox 96 10/14/16 08:04 Intake & Output 10/13/16 10/14/16 10/14/16 18:59 06:59 18:59 Output Total 400 Balance -400 Weight 79 kg Output: Urine 400 Other: Voiding Method Urinal Incontinent # Voids 1 3 # Bowel Movements 1 - Exam General appearance: The patient is alert, oriented, in no acute distress. HET: Head is normocephalic and atraumatic. Pupils are equal and reactive. Oropharynx is clear without lesions. Neck: Supple without lymphadenopathy. Trachea midline. Heart: S1 S2. Regular rate and rhythm. Lungs: No crackles or wheezes are heard. Abdomen: Soft, mild lower left abdominal discomfort, nondistended with bowel sounds. No peritoneal signs. No palpable organomegaly or masses. Extremities: Normal skin color and turgor. No cyanosis, rash, ulceration, clubbing, or edema. Radial and pedal pulses are 2/4 bilaterally. Neurological: No focal deficits. Strength and sensation are grossly intact. - Labs CBC & Chem 7: 10/14/16 07:46 10/14/16 07:46 Labs: Abnormal Lab Results - Last 24 Hours (Table) 10/13/16 10/14/16 10/14/16 Range/Units 07:53 07:46 07:46 RBC 3.72 L (4.30-5.90) m/uL Hgb 10.9 L (13.0-17.5) gm/dL Hct 34.2 L (39.0-53.0) % ESR 55 H (0-15) mm/hr Chloride 110 H (98-107) mmol/L Carbon Dioxide 21 L (22-30) mmol/L BUN 5 L (9-20) mg/dL Microbiology - Last 24 Hours (Table) 10/13/16 02:06 Blood Culture - Preliminary Blood No Growth after 24 hours 10/13/16 02:06 Urine Culture - Preliminary Urine,Voided Assessment and Plan (1) Abdominal pain Narrative/Plan: 66-year-old gentleman with severe rheumatoid arthritis medical debility bedbound presents with acute abdominal pain and leukocytosis nausea vomiting [address] imaging suggestive of colonic rectal thickening with adjacent retroperitoneal lymph node enlargement concern for malignancy possible colitis. Underlying of acute appendicitis cannot be entirely excluded. Status: Acute Plan: 1. EGD colonoscopy evaluation tomorrow. 2. CBC monitoring. Continue with GI prophylaxis. The fiber analyst has discussed the risks, benefits and alternative therapies for the above-mentioned procedure and for both sedation/analgesia as well as necessary blood product administration, if indicated, as they pertain to this patient. The patient has indicated understanding and acceptance of the risks and procedures discussed. Assessment and plan a care discussed with Dr. Mejia
--- NOTE | 2016-10-14 10:14 | P.PN ---
Subjective Principal diagnosis: Abdominal pain possible GI bleed 66-year-old gentleman admitted with abdominal pain possible GI bleed with episode of coffee-ground emesis possible red tinged bowel movements. However no witnessed episodes of hematemesis medication melena since admission. Hemoglobin 10.9. CT reported rectosigmoid thickening lymph node enlargement underlying malignancy cannot be excluded. Yesterday patient was requesting transfer to [place] for endoscopic evaluation however this morning he has changed his mind. Abdominal pain improved. No reports of bleeding. Objective - Vital Signs Vital signs: Vital Signs Temp 97.3 F L 10/14/16 07:00 Pulse 67 10/14/16 07:00 Resp 18 10/14/16 07:00 BP 110/62 10/14/16 07:00 Pulse Ox 96 10/14/16 08:04 Intake & Output 10/13/16 10/14/16 10/14/16 18:59 06:59 18:59 Output Total 400 Balance -400 Weight 79 kg Output: Urine 400 Other: Voiding Method Urinal Incontinent # Voids 1 3 # Bowel Movements 1 - Exam General appearance: The patient is alert, oriented, in no acute distress. HET: Head is normocephalic and atraumatic. Pupils are equal and reactive. Oropharynx is clear without lesions. Neck: Supple without lymphadenopathy. Trachea midline. Heart: S1 S2. Regular rate and rhythm. Lungs: No crackles or wheezes are heard. Abdomen: Soft, mild lower left abdominal discomfort, nondistended with bowel sounds. No peritoneal signs. No palpable organomegaly or masses. Extremities: Normal skin color and turgor. No cyanosis, rash, ulceration, clubbing, or edema. Radial and pedal pulses are 2/4 bilaterally. Neurological: No focal deficits. Strength and sensation are grossly intact. - Labs CBC & Chem 7: 10/14/16 07:46 10/14/16 07:46 Labs: Abnormal Lab Results - Last 24 Hours (Table) 10/13/16 10/14/16 10/14/16 Range/Units 07:53 07:46 07:46 RBC 3.72 L (4.30-5.90) m/uL Hgb 10.9 L (13.0-17.5) gm/dL Hct 34.2 L (39.0-53.0) % ESR 55 H (0-15) mm/hr Chloride 110 H (98-107) mmol/L Carbon Dioxide 21 L (22-30) mmol/L BUN 5 L (9-20) mg/dL Microbiology - Last 24 Hours (Table) 10/13/16 02:06 Blood Culture - Preliminary Blood No Growth after 24 hours 10/13/16 02:06 Urine Culture - Preliminary Urine,Voided Assessment and Plan (1) Abdominal pain Narrative/Plan: 66-year-old gentleman with severe rheumatoid arthritis medical debility bedbound presents with acute abdominal pain and leukocytosis nausea vomiting [address] imaging suggestive of colonic rectal thickening with adjacent retroperitoneal lymph node enlargement concern for malignancy possible colitis. Underlying of acute appendicitis cannot be entirely excluded. Status: Acute Plan: 1. EGD colonoscopy tomorrow. 2. CBC monitoring. Continue GI prophylaxis. The customer equipment engineer has discussed the risks, benefits and alternative therapies for the above-mentioned procedure and for both sedation/analgesia as well as necessary blood product administration, if indicated, as they pertain to this patient. The patient has indicated understanding and acceptance of the risks and procedures discussed. Assessment and plan a care discussed with Dr. Mejia
[2016-10-14] MEDS ORDERED: BISACODYL 5 MG TABLET.DR PO STA (10:15)
[2016-10-14] MEDS ORDERED: MAGNESIUM CITRATE 296 ML BOTTLE PO ONE (12:30)
[2016-10-14] MEDS: THIAMINE 100 MG TAB PO SCH (14:11)
[2016-10-14] MEDS ORDERED: PEG 3350-NA SULF,BICARB,CL/KCL 4,000 ML BOTTLE PO ONE (16:00)
[2016-10-14] MEDS: FLUoxetine HCL 20 MG CAP PO SCH (21:17)
[2016-10-14] MEDS: CHOLECALCIFEROL 1,000 UNIT TAB PO SCH (21:17)
[2016-10-14] MEDS: DONEPEZIL 5 MG TAB PO SCH (21:17)
[2016-10-14] MEDS: ZOLPIDEM 5 MG TAB PO SCH (22:22)
[2016-10-15] MEDS: buPROPion SR 100 MG TABLET.ER PO SCH ×2 (09:35→13:46)
[2016-10-15] MEDS: ARIPiprazole 5 MG TAB PO SCH ×2 (09:35→15:13)
[2016-10-15] MEDS: PANTOPRAZOLE 40 MG/10 ML VIAL IV SCH (09:35)
[2016-10-15] MEDS: DIVALPROEX ER 250 MG TAB.ER.24H PO SCH (09:35)
[2016-10-15] MEDS: metroNIDAZOLE-NS PMX 500 MG in SALINE 1 100ML.BAG IVPB SCH ×2 (09:35→15:13)
--- NOTE | 2016-10-15 10:52 | P.PN ---
Subjective Principal diagnosis: Abdominal pain possible GI bleed 66-year-old gentleman admitted with abdominal pain possible GI bleed with episode of coffee-ground emesis possible red tinged bowel movements. However no witnessed episodes of hematemesis medication melena since admission. Hemoglobin 10.9. CT reported rectosigmoid thickening lymph node enlargement underlying malignancy cannot be excluded. Abdominal pain improved. No reports of bleeding. EGD colonoscoy scheduled today however bowel prep insufficient/poor rescheduled for tomorrow. Objective - Vital Signs Vital signs: Vital Signs Temp 98.0 F 10/15/16 07:00 Pulse 80 10/15/16 07:00 Resp 20 10/15/16 07:00 BP 114/54 10/15/16 07:00 Pulse Ox 96 10/15/16 07:00 Intake & Output 10/14/16 10/15/16 10/15/16 18:59 06:59 18:59 Intake Total 1000 Output Total 2 Balance 1000 -2 Intake: Oral 1000 Output: Stool 2 Other: Voiding Method Urinal Incontinent # Voids 3 3 # Bowel Movements 3 - Exam General appearance: The patient is alert, oriented, in no acute distress. HET: Head is normocephalic and atraumatic. Pupils are equal and reactive. Oropharynx is clear without lesions. Neck: Supple without lymphadenopathy. Trachea midline. Heart: S1 S2. Regular rate and rhythm. Lungs: No crackles or wheezes are heard. Abdomen: Soft, mild lower left abdominal discomfort, nondistended with bowel sounds. No peritoneal signs. No palpable organomegaly or masses. Extremities: Normal skin color and turgor. No cyanosis, rash, ulceration, clubbing, or edema. Radial and pedal pulses are 2/4 bilaterally. Neurological: No focal deficits. Strength and sensation are grossly intact. - Labs CBC & Chem 7: 10/14/16 07:46 10/14/16 07:46 Labs: Microbiology - Last 24 Hours (Table) 10/13/16 02:06 Blood Culture - Preliminary Blood No Growth after 48 hours 10/13/16 02:06 Urine Culture - Final Urine,Voided Assessment and Plan (1) Abdominal pain Narrative/Plan: 66-year-old gentleman with severe rheumatoid arthritis medical debility bedbound presents with acute abdominal pain and leukocytosis nausea vomiting [address] imaging suggestive of colonic rectal thickening with adjacent retroperitoneal lymph node enlargement concern for malignancy possible colitis. Underlying of acute appendicitis cannot be entirely excluded. Status: Acute Plan: 1. EGD/colonoscopy tomorrow. 2. CEA. Assessment and plan of care discussed with Dr. Rios
[2016-10-15] MEDS: DEXTROSE 5%-0.45% NACL 1,000 ML IV SCH (11:13)
[2016-10-15] MEDS ORDERED: PEG 3350-NA SULF,BICARB,CL/KCL 4,000 ML BOTTLE PO ONE (11:21)
[2016-10-15] MEDS: THIAMINE 100 MG TAB PO SCH (11:22)
[2016-10-15] MEDS ORDERED: POTASSIUM CHLORIDE ORAL LIQUID 40 MEQ/30 ML CUP PO ONE (13:10)
[2016-10-15 15:29] VITALS: BP 128/55; PULSE 71; RESP 16; TEMP 98.1
--- NOTE | 2016-10-15 20:25 | P.DS ---
Providers Date of admission: 10/13/16 02:06 Expected date of discharge: 10/15/16 Attending physician: Cristiano Marin MD Consults: 10/13/16 02:06 Consult Physician Stat Consulting Provider: Juan Jose Mejia Consult Reason/Comments: Colitis, coffee-ground emesis, melena, pneumonia Do you want consulting provider notified?: Yes Primary care physician: Physician Nonstaff - Discharge Diagnosis(es) (1) Coffee ground emesis Status: Acute (2) Colon wall thickening Status: Acute (3) Debility Status: Chronic Priority: Medium (4) GI bleed Status: Acute (5) Rheumatoid arthritis Status: Chronic Priority: Medium (6) Stasis dermatitis of both legs Status: Chronic Hospital Course: 66-year-old male past medical history of severe rheumatoid arthritis, medical debility and bedbound. who presented with 5 day history of intractable nausea and off the ground vomiting with possible hematochezia. Computed tomography scan of the abdomen suggested thickening of the colon possible colitis in the rectosigmoid region with lymphadenopathy suspicious for underlying malignancy. Patient was started on broad-spectrum antibiotic to cover for possible colitis and plan was to perform EGD/colonoscopy however this could not be performed today due to insufficient/poor bowel prep and GI recommended to reschedule for next day. CEA was unremarkable. however we were able to communicate with the [facility] who accepted the transfer as the patient was having stable vital signs and no more events of bleeding overnight. Patient was transferred to the [facility] after I personally discussed the case with Dr. Sandy who accepted him at the [place] patient was seen and examined On day of transfer patient reported no more abdominal pain, no vomiting no GI bleeding,tolerating full liquid diet Constitutional: vital signs stable, Not in acute distress, pleasant, conversant Lungs: Clear to auscultation bilaterally, clear to percussion, normal respiratory effort no use of accessory muscles Cardiovascular: Regular rate and rhythm, no murmurs, no gallops, no rubs, no peripheral leg edema Gastrointestinal: Soft, no tenderness to palpation, no palpable hepatosplenomegally, bowel sounds positive Skin: Bilateral chronic stasis dermatitis of lower extremity Extremities: No digital cyanosis or clubbing, no calf muscle tenderness Psych: Alert, oriented to place, person Labs reviewed hemoglobin dropped down from 13-10.9 however by reviewing other labs it seems to be dilutional component More than 35 minutes were spent discharging this patient, and more than 50% of the time was spent in counseling the patient and in coordinating care. I personally gave verbal sign out to receiving physician at [facility] Dr. Sandy who accepted the case Pertinent Studies: CT scan of the abdomen showing thickening in the rectosigmoid region with lymphadenopathy Patient Condition at Discharge: Stable Plan - Discharge Summary New Discharge Prescriptions: New Acetaminophen Tab [Tylenol] 650 mg PO Q6HR PRN tab PRN Reason: Mild Pain Or Fever > 100.5 cefTRIAXone [Rocephin] 1,000 mg IVPB HS vial Ondansetron [Zofran] 4 mg IVP Q8HR PRN vial PRN Reason: Nausea And Vomiting Thiamine [Vitamin B-1] 100 mg PO DAILY@1200 tab Continue buPROPion HCL [Wellbutrin SR] 100 mg PO BID@0800,1400 Ferrous Sulfate [Iron (65 MG Elemental)] 325 mg PO TID@0800,1400,1999 ARIPiprazole [Abilify] 5 mg PO BID@0800,1700 Zolpidem [Ambien] 5 mg PO HS@1999 FLUoxetine HCL [PROzac] 20 mg PO HS@1999 Donepezil [Aricept] 5 mg PO HS@1999 Divalproex Sodium [Depakote ER] 250 mg PO BID@0800,1999 Aspirin EC [Ecotrin Low Dose] 81 mg PO HS@1999 sulfaSALAzine [Azulfidine] 500 mg PO QID@,,17,20 Lactobacillus Acidophilus [Acidophilus] 1 tab PO BID@0800,1700 Cholecalciferol [Vitamin D3] 1,000 unit PO HS@1999 Discontinued Dicyclomine [Bentyl] 10 mg PO QID@08,,17,20 Discharge Medication List ARIPiprazole [Abilify] 5 mg PO BID@0800,1700 10/12/16 [History] Aspirin EC [Ecotrin Low Dose] 81 mg PO HS@199910/12/16 [History] Cholecalciferol [Vitamin D3] 1,000 unit PO HS@199910/12/16 [History] Divalproex Sodium [Depakote ER] 250 mg PO BID@0800,199910/12/16 [History] Donepezil [Aricept] 5 mg PO HS@199910/12/16 [History] FLUoxetine HCL [PROzac] 20 mg PO HS@199910/12/16 [History] Ferrous Sulfate [Iron (65 MG Elemental)] 325 mg PO TID@0800,1400,199910/12/16 [ History] Lactobacillus Acidophilus [Acidophilus] 1 tab PO BID@0800,1700 10/12/16 [History ] Zolpidem [Ambien] 5 mg PO HS@199910/12/16 [History] buPROPion HCL [Wellbutrin SR] 100 mg PO BID@0800,1400 10/12/16 [History] sulfaSALAzine [Azulfidine] 500 mg PO QID@08,,,20 10/12/16 [History] Acetaminophen Tab [Tylenol] 650 mg PO Q6HR PRN tab 10/15/16 [Rx] Ondansetron [Zofran] 4 mg IVP Q8HR PRN vial 10/15/16 [Rx] Thiamine [Vitamin B-1] 100 mg PO DAILY@1200 tab 10/15/16 [Rx] cefTRIAXone [Rocephin] 1,000 mg IVPB HS vial 10/15/16 [Rx] Follow up Appointment(s)/Referral(s): Nonstaff,Physician [Primary Care Provider] - 1-2 days Patient Instructions/Handouts: Rectal Bleeding (GEN) Care Plan Goals (MU): Patient was also receiving Flagyl 500 mg IVPB TID plans for Cscope Transfer to [place] [facility] Discharge Disposition: DISCH/TRANS TO A [facility]
== END 2016-10-15 16:11 | DRG 392 ==
LOC: EC 22:39 → 4MS4W 10-13 02:06
PROVIDERS: ADMIT Hospitalist; ATTEND Hospitalist
DX: K52.9 Noninfective gastroenteritis and colitis, unspecified (principal); F32.9 Major depressive disorder, single episode, unspecified; M06.9 Rheumatoid arthritis, unspecified; M19.91 Primary osteoarthritis, unspecified site; F41.9 Anxiety disorder, unspecified; I87.2 Venous insufficiency (chronic) (peripheral); R59.1 Generalized enlarged lymph nodes; Z79.82 Long term (current) use of aspirin; Z79.899 Other long term (current) drug therapy; Z87.891 Personal history of nicotine dependence; Z74.01 Bed confinement status
CPT/HCPCS: 36415; 71010; 74000; 74177; 80048; 80053; 81001; 82150; 82272; 82378; 82550; 82553; 83605; 83690; 84484; 85025; 85610; 85652; 85730; 86850; 86900; 86901; 87040; 87086; 93005; 94760